=== PATIENT | female | born 1990 ===

== ENCOUNTER 2017-01-13 21:05 | Emergency (ER) | payer SELFPAY ==
[~2017-01-13] VITALS: Ht 160 cm; Wt 70.0 kg
[2017-01-13 21:07] VITALS: BP 133/91; PULSE 90; RESP 16; TEMP 98.5; O2SAT 100
--- NOTE | 2017-01-13 22:20 | PD ---
Physical Exam Date Seen by Provider: Jan 13, 2017 Time Seen by Provider: 22:18 Narrative 26 yo female here for evaluation of abscess to the right wrist. Has had it for a week. Draining. History of this before. About 3 cm in diameter. IVDA, was admitted to [facility] and left AMA. No chest pain. Cannot move her wrist secondary to infection. Pain is 6/10. Vitals sign stable. Patient awaiting bed placement. Data Data Last Documented VS Vital Signs Date Time Temp Pulse Resp B/P Pulse Ox O2 Delivery O2 Flow Rate FiO2 01/13/17 21:07 98.5 90 16 133/91 100 Room Air [facility] Medical Record Reviewed: Yes Supervised Visit with KYLEE: No Herberth Lee Jan 13, 2017 22:20
== END 2017-01-14 00:10 | disposition left against medical advice (07) ==
LOC: NED 21:05
DX: L02.413 Cutaneous abscess of right upper limb (principal)
CPT/HCPCS: 99281